=== PATIENT | female | born 1975 | race Caucasian/White ===

== ENCOUNTER 2019-04-09 18:34 | Emergency (ER) | payer OTHER, SELFPAY ==
[~2019-04-09] VITALS: Ht 160 cm; Wt 104.1 kg
[2019-04-09 18:34] VITALS: BP 140/95
--- NOTE | 2019-04-09 18:55 | NUR ---
report given to Bozena
--- NOTE | 2019-04-09 18:56 | NUR ---
REPORT RECEIVED FROM KOBE VASQUEZ.
[2019-04-09 19:15] LABS: MICROSCOPIC INDICATED
[2019-04-09 19:27] LABS: CULTURE INDICATED? YES
--- NOTE | 2019-04-09 19:59 | NUR ---
Patient/Caregiver given discharge instructions and they have confirmed that they understand the instructions. Patient ambulatory with steady gait.
== END 2019-04-09 20:00 | disposition home or self-care (01) ==
LOC: ED 19:57
DX: K08.89 Other specified disorders of teeth and supporting structures (principal); M54.5 Low back pain; G89.29 Other chronic pain
CPT/HCPCS: 81001; 87086; 99283